=== PATIENT | male | born 1970 | race Two or more races ===

== ENCOUNTER 2021-04-19 20:33 | Emergency (ER) | payer SELFPAY ==
[~2021-04-19] VITALS: Ht 167.6 cm; Wt 85.7 kg
[2021-04-19] MEDS ORDERED: ASPirin 81 mg TAB PO ONE (21:15)
[2021-04-19 23:43] LABS: BUN/Creatinine Ratio 15.7; Bilirubin, Total 0.5 mg/dL (0.2-1.0); Total Protein 8.2 g/dL (6.4-8.2)
[2021-04-20 03:25] VITALS: BP 130/86
== END 2021-04-20 03:56 | disposition home or self-care (01) ==
LOC: ER 20:45
DX: R07.89 Other chest pain (principal); I10 Essential (primary) hypertension
CPT/HCPCS: 36415; 71045; 80053; 83880; 84484; 93005